=== PATIENT | male | born 1950 | race Caucasian/White ===

== ENCOUNTER 2021-08-22 11:06 | Observation (INO) ==
[2021-08-22] MEDS ORDERED: 0.9 % Sodium Chloride 500 ML IVC ONE ×2 (11:22→13:59)
[2021-08-22 11:50] LABS: Hematocrit 33.1 % (37.5-50.1); Lymphocytes # 1.3 K/mcL (0.6-4.6); Mean Corpuscular HGB Conc 33.2 g/dL (31.6-35.5); Mean Corpuscular Volume 93.2 fL (83.0-100.0); Mean Platelet Volume 10.7 fL (9.4-12.4); Nucleated Red Blood Cells 0.2 /100 WBC (0); Platelet Count 311 K/mcL (140-400); Red Blood Count 3.55 M/mcL (4.19-5.50); Red Cell Distribution Width 15.2 % (11.5-14.5); White Blood Count 12.5 K/mcL (4.3-11.1)
[2021-08-22 12:08] LABS: Eosinophils # 0.3 K/mcL (0.0-0.6); Monocytes # 0.8 K/mcL (0.0-1.3); Platelet Estimate Normal (Normal)
[2021-08-22 12:12] LABS: BUN/Creatinine Ratio 38 (6-26); Blood Urea Nitrogen 48 mg/dL (8-23); Calcium 8.7 mg/dL (8.6-10.3); Carbon Dioxide 24 mEq/L (23-29); Chloride 101 mEq/L (98-107); Glucose 169 mg/dL (70-105); Osmolality,Calculated 295 (280-300); Potassium 4.3 mEq/L (3.5-5.1); Sodium 134 mEq/L (136-145); Troponin I < 0.03 ng/mL (< 0.04); eGFR For African Americans > 60 (> 60); eGFR For Non-African Americans 56 (> 60)
[2021-08-22] MEDS ORDERED: Isovue-370 500 ML BOTTLE IVP ONE (12:19)
[2021-08-22] MEDS ORDERED: Piperacillin/Tazobactam 3.375 GM in 0.9 % Sodium Chloride Mini Bag 100 ML IVPB ONE (13:54)
[2021-08-22] MEDS ORDERED: Ondansetron 4 MG/2 ML VIAL IVP PRN (14:25)
[2021-08-22] MEDS ORDERED: Acetaminophen 325 MG TABLET PO PRN (14:25)
[2021-08-22] MEDS ORDERED: Naloxone 0.4 MG/ML INJ IVP PRN (14:25)
[2021-08-22] MEDS ORDERED: Ringers Solution, Lactated 1,000 ML IVC SCH (14:30)
[2021-08-22] MEDS ORDERED: Benzonatate 100 MG CAPSULE PO PRN (14:37)
[2021-08-22] MEDS ORDERED: traZODone 50 MG TABLET PO PRN (17:20)
[2021-08-22] MEDS: Gabapentin 400 MG CAPSULE PO SCH (21:02)
[2021-08-22] MEDS ORDERED: D5% in Water 1,000 ML IVC PRN (22:02)
[2021-08-22] MEDS ORDERED: Dextrose Gel 15 GM/37.5 ML TUBE PO PRN ×2 (22:02)
[2021-08-22] MEDS: Insulin LISPRO 300 UNITS/3 ML VIAL SUBQ SCH (23:30)
[2021-08-23 03:30] LABS: Hematocrit 26.8 % (37.5-50.1); Mean Corpuscular HGB Conc 32.5 g/dL (31.6-35.5); Mean Corpuscular Hemoglobin 31.1 pg (28.0-33.3); Mean Corpuscular Volume 95.7 fL (83.0-100.0); Mean Platelet Volume 10.6 fL (9.4-12.4); Platelet Count 215 K/mcL (140-400); Red Cell Distribution Width 14.9 % (11.5-14.5); White Blood Count 6.8 K/mcL (4.3-11.1)
[2021-08-23 03:35] LABS: BUN/Creatinine Ratio 35 (6-26); Blood Urea Nitrogen 29 mg/dL (8-23); Calcium 7.8 mg/dL (8.6-10.3); Carbon Dioxide 23 mEq/L (23-29); Chloride 106 mEq/L (98-107); Glucose 161 mg/dL (70-105); Hemoglobin 8.7 g/dL (12.9-16.9); Osmolality,Calculated 293 (280-300); Sodium 137 mEq/L (136-145); eGFR For African Americans > 60 (> 60); eGFR For Non-African Americans > 60 (> 60)
[2021-08-23 05:13] LABS: Eosinophils # 0.1 K/mcL (0.0-0.6); Lymphocytes # 1.2 K/mcL (0.6-4.6); Monocytes # 0.3 K/mcL (0.0-1.3); Neutrophils # 5.2 K/mcL (1.6-8.9)
[2021-08-23 05:14] LABS: Platelet Estimate Normal (Normal); Reactive Lymphocytes Present (Not Present)
[2021-08-23 08:11] LABS: Hematocrit 27.6 % (37.5-50.1); Hemoglobin 8.9 g/dL (12.9-16.9)
[2021-08-23] MEDS: *HR* Rivaroxaban 10 MG TABLET PO SCH (08:47)
[2021-08-23] MEDS: Gabapentin 400 MG CAPSULE PO SCH ×3 (08:47→20:31)
[2021-08-23] MEDS: carvediloL 6.25 MG TABLET PO SCH ×2 (08:47→16:07)
[2021-08-23] MEDS: Cholecalciferol (D-3) 1,000 UNIT (25MCG) TABLET PO SCH (08:47)
[2021-08-23] MEDS: Aspirin Enteric Coated 81 MG Tablet PO SCH (08:47)
[2021-08-23] MEDS: Insulin LISPRO 300 UNITS/3 ML VIAL SUBQ SCH ×4 (09:07→20:29)
[2021-08-24] MEDS: Insulin LISPRO 300 UNITS/3 ML VIAL SUBQ SCH ×4 (08:31→20:23)
[2021-08-24] MEDS: Gabapentin 400 MG CAPSULE PO SCH ×3 (08:31→20:30)
[2021-08-24] MEDS: Cholecalciferol (D-3) 1,000 UNIT (25MCG) TABLET PO SCH (08:32)
[2021-08-24] MEDS: *HR* Rivaroxaban 10 MG TABLET PO SCH (08:32)
[2021-08-24] MEDS: carvediloL 6.25 MG TABLET PO SCH ×2 (08:32→16:34)
[2021-08-24] MEDS: Aspirin Enteric Coated 81 MG Tablet PO SCH (08:32)
[2021-08-25 00:25] VITALS: BP 126/71; PULSE 78; TEMP 97.6; O2SAT 97
== END 2021-08-25 00:30 ==
LOC: 2ANU 11:06 → EMEROOARM 11:06 → 2ANU 16:06
PROVIDERS: ADMIT Internal Medicine; ATTEND Internal Medicine